=== PATIENT | male | born 1990 | race Caucasian/White ===

== ENCOUNTER 2020-09-20 08:01 | Emergency (ER) | payer OTHER ==
[2020-09-20] MEDS ORDERED: KETOROLAC TROMETHAMINE 30 MG/1 ML VIAL ONE (08:10)
[2020-09-20] MEDS ORDERED: ONDANSETRON 4 MG/2 ML VIAL ONE (08:11)
[2020-09-20] MEDS ORDERED: SODIUM CHLORIDE 1,000 ML IV STA (08:12)
[2020-09-20] MEDS ORDERED: KETOROLAC TROMETHAMINE 30 MG/1 ML VIAL IVPUSH ONE (08:12)
[2020-09-20] MEDS ORDERED: ONDANSETRON 4 MG/2 ML VIAL IVPB ONE (08:13)
[2020-09-20 08:26] VITALS: TEMP 97.8; BMI 25.7
[2020-09-20 08:45] LABS: BASO % 2.5 % (0-2.0); EOS % 3.6 % (0-4.5); HEMATOCRIT 43.6 % (35.4-49); HEMOGLOBIN 15.1 GM/dl (11.7-16.9); LYMPH % 33.6 % (8-40); MCH 31.5 pg (25.7-33.7); MCHC 34.6 g/dl (32.0-35.9); MEAN CELL VOLUME 91.1 fl (80-96); MEAN PLT VOLUME 8.8 fl (7.5-11.1); MONO % 6.8 % (3.8-10.2); NEUT % 53.5 % (42.8-82.8); PLATELET COUNT 275 K/MM3 (134-434); RBC 4.79 M/mm3 (4.00-5.60); RDW 12.1 % (11.9-15.9)
[2020-09-20 08:52] LABS: ALBUMIN 4.4 g/dl (3.4-5.0); BILIRUBIN,TOTAL 1.2 mg/dl (0.2-1); CALCIUM 9.2 mg/dl (8.5-10); POTASSIUM 3.8 mmol/L (3.5-5.1); TOT PROT 7.1 g/dl (6.4-8.2)
[2020-09-20 09:09] VITALS: BP 110/66; PULSE 89
[2020-09-20 10:58] LABS: CALCIUM OXALATE CRYSTALS MANY /hpf (NONE SEEN); EPITHELIAL CELLS RARE /hpf
== END 2020-09-20 11:54 | disposition home or self-care (01) ==
LOC: FER 08:01
PROC: 3E0333Z Introduction of Anti-inflammatory into Peripheral Vein, Percutaneous Approach (ICD-10-PCS; principal; 2020-09-20)
PROC: 3E033GC Introduction of Other Therapeutic Substance into Peripheral Vein, Percutaneous Approach (ICD-10-PCS; 2020-09-20)
PROC: 3E0337Z Introduction of Electrolytic and Water Balance Substance into Peripheral Vein, Percutaneous Approach (ICD-10-PCS; 2020-09-20)
DX: N23 Unspecified renal colic (principal); R10.32 Left lower quadrant pain; K59.00 Constipation, unspecified
CPT/HCPCS: 36415; 74177-TC; 80053; 81003; 81015; 85025; 87086; 99285-25; Q9967

== ENCOUNTER 2022-05-27 13:21 | Emergency (ER) | payer OTHER ==
[2022-05-27 13:31] VITALS: TEMP 98; BMI 26.9
[2022-05-27 14:12] LABS: HEMATOCRIT 44.3 % (35.4-49); HEMOGLOBIN 16.1 G/dL (11.7-16.9); MCH 31.8 pg (25.7-33.7); MCHC 36.3 g/dl (32.0-35.9); MEAN CELL VOLUME 87.8 fl (80-96); MEAN PLT VOLUME 8.3 fl (7.5-11.1); PLATELET COUNT 235.2 10^3/uL (134-434); RBC 5.05 10^6/uL (4.00-5.60); RDW 13.8 % (11.9-15.9); WHITE BLOOD COUNT 6.2 10^3/uL (4.0-10.8)
[2022-05-27 14:35] LABS: PLATELET ESTIMATE ADEQUATE
[2022-05-27 14:53] LABS: ALBUMIN 4.3 g/dl (3.4-5.0); ALK PHOS 66 U/L (45-117); ANION GAP 6 MMOL/L (8-16); BILIRUBIN,TOTAL 0.9 mg/dl (0.2-1); CALCIUM 9.3 mg/dl (8.5-10); CHLORIDE 103 mmol/L (98-107); CO2 26 mmol/L (21-32); CREATININE 0.9 mg/dl (0.55-1.3); GLUCOSE,RANDOM 94 mg/dl (74-106); MAGNESIUM 2.1 mg/dL (1.8-2.4); SGOT/AST 26 U/L (15-37); SGPT/ALT 40 U/L (13-61); SODIUM 135 mmol/L (136-145); TOT PROT 6.9 g/dl (6.4-8.2)
[2022-05-27 15:30] VITALS: BP 124/84; PULSE 98; RESP 18
== END 2022-05-27 15:30 | disposition home or self-care (01) ==
LOC: FER 13:21
DX: R07.9 Chest pain, unspecified (principal)
CPT/HCPCS: 36415; 71045-TC-FY; 80053; 82550; 83735; 84484; 85027; 93005; 99284-25

== ENCOUNTER 2024-06-12 17:30 | Emergency (ER) | payer OTHER ==
[2024-06-12 17:54] VITALS: BP 127/77; PULSE 68; RESP 16; TEMP 98.4; BMI 23.3
== END 2024-06-12 18:38 | disposition home or self-care (01) ==
LOC: FER 17:30
DX: R51.9 Headache, unspecified (principal); J01.30 Acute sphenoidal sinusitis, unspecified
CPT/HCPCS: 70450-TC; 99284-25